=== PATIENT | male | born 1945 | race Caucasian/White ===

== ENCOUNTER 2020-04-17 22:04 | Inpatient (IN) ==
[2020-04-17] MEDS ORDERED: 0.9 % Sodium Chloride 1,000 ML IVC ONE (22:23)
[2020-04-17] MEDS ORDERED: Ondansetron 4 MG/2 ML VIAL IVP ONE (22:48)
[2020-04-17 23:17] LABS: Bilirubin,Urine Negative (Negative); Blood,Urine Negative (Negative); Clarity,Urine Clear (Clear); Color,Urine Yellow (Yellow); Glucose,Urine (UA) Normal (Normal); Ketones,Urine Negative (Negative); Leukocyte Esterase,Urine Negative (Negative); Nitrite,Urine Negative (Negative); PH,Urine 5.5 pH Units (5.0-8.0); Protein,Urine 30 mg/dL (Neg-Trace); Specific Gravity,Urine 1.025 (1.010-1.025); Urobilinogen,Urine Normal (Normal)
[2020-04-17 23:20] LABS: Mucus,Urine Few per lpf (None-Few); RBC,Urine 0-3 per hpf (0-3); Squamous Epithelial Cell,Urine Few per hpf (None-Few); WBC,Urine 0-3 per hpf (0-3)
[2020-04-17] MEDS ORDERED: Piperacillin/Tazobactam 3.375 GM in Water for inj. (sterile) 20 ML IVP ONE (23:36)
[2020-04-17 23:37] LABS: Hematocrit 44.8 % (37.5-50.1); Hemoglobin 14.6 g/dL (12.9-16.9); Lymphocytes # 0.4 K/mcL (0.6-4.6); Mean Corpuscular HGB Conc 32.6 g/dL (31.6-35.5); Mean Corpuscular Hemoglobin 29.8 pg (28.0-33.3); Mean Corpuscular Volume 91.4 fL (83.0-100.0); Mean Platelet Volume 10.2 fL (9.4-12.4); Platelet Count 210 K/mcL (140-400); Red Cell Distribution Width 14.5 % (11.5-14.5)
[2020-04-17 23:40] LABS: White Blood Count 9.7 K/mcL (4.3-11.1)
[2020-04-17 23:46] LABS: VBG HCO3 22 mEq/L (21-27); VBG PCO2 36 mmHg (41-51); VBG PH 7.39 pH Units (7.32-7.42); VBG PO2 76 mmHg (25-50)
[2020-04-18 00:06] LABS: Albumin 4.1 g/dL (3.5-5.7); Albumin/Globulin Ratio 1.6 (1.1-2.2); Bilirubin,Direct 0.2 mg/dL (0.0-0.2); Bilirubin,Indirect 0.6 mg/dL (0.0-1.0); Bilirubin,Total 0.8 mg/dL (0.3-1.0); Calcium 8.4 mg/dL (8.6-10.3); Globulin 2.5 g/dL (2.4-3.5); Magnesium 1.6 mg/dL (1.6-2.6); Potassium 3.5 mEq/L (3.5-5.1); Total Protein 6.6 g/dL (6.4-8.9)
[2020-04-18 00:11] LABS: Eosinophils # 0.2 K/mcL (0.0-0.6); Monocytes # 0.2 K/mcL (0.0-1.3); Neutrophils # 8.7 K/mcL (1.6-8.9)
[2020-04-18 00:12] LABS: Large Platelets Present (Not Present); Platelet Estimate Normal (Normal); Reactive Lymphocytes Present (Not Present)
[2020-04-18 00:23] LABS: Adenovirus Not Detected (Not Detect); Bordetella Pertussis Not Detected (Not Detect); Chlamydophila pneumoniae Not Detected (Not Detect); Coronavirus 229E Not Detected (Not Detect); Coronavirus HKU1 Not Detected (Not Detect); Coronavirus NL63 Not Detected (Not Detect); Coronavirus OC43 Not Detected (Not Detect); Human Metapneumovirus Not Detected (Not Detect); Human Rhinovirus/Enterovirus Not Detected (Not Detect); Influenza A Subtype 2009 H1 Not Detected (Not Detect); Influenza B Not Detected (Not Detect); Mycoplasma pneumoniae Not Detected (Not Detect); Parainfluenza Virus 1 Not Detected (Not Detect); Parainfluenza Virus 2 Not Detected (Not Detect); Parainfluenza Virus 3 Not Detected (Not Detect); Parainfluenza Virus 4 Not Detected (Not Detect); Respiratory Syncytial Virus Not Detected (Not Detect); SARS-CoV-2 Not Detected (Not Detect)
[2020-04-18 00:28] LABS: INR 3.7; Prothrombin Time 41.9 Seconds (9.4-12.1)
[2020-04-18] MEDS ORDERED: Naloxone 0.4 MG/ML INJ IVP PRN (04:06)
[2020-04-18] MEDS ORDERED: Ondansetron 4 MG/2 ML VIAL IVP PRN (04:12)
[2020-04-18] MEDS ORDERED: 0.9 % Sodium Chloride 1,000 ML IVC SCH (04:15)
[2020-04-18 04:37] LABS: Hematocrit 41.3 % (37.5-50.1); Hemoglobin 13.5 g/dL (12.9-16.9); Mean Corpuscular HGB Conc 32.7 g/dL (31.6-35.5); Mean Corpuscular Hemoglobin 30.3 pg (28.0-33.3); Mean Corpuscular Volume 92.8 fL (83.0-100.0); Mean Platelet Volume 10.1 fL (9.4-12.4); Platelet Count 185 K/mcL (140-400); Red Blood Count 4.45 M/mcL (4.19-5.50); Red Cell Distribution Width 14.6 % (11.5-14.5); White Blood Count 12.1 K/mcL (4.3-11.1)
[2020-04-18 04:57] LABS: Albumin 3.7 g/dL (3.5-5.7); Albumin/Globulin Ratio 1.4 (1.1-2.2); Bilirubin,Total 0.8 mg/dL (0.3-1.0); Calcium 7.8 mg/dL (8.6-10.3); Globulin 2.6 g/dL (2.4-3.5); Potassium 3.8 mEq/L (3.5-5.1); Total Protein 6.3 g/dL (6.4-8.9)
[2020-04-18 05:11] LABS: Large Platelets Present (Not Present); Lymphocytes # 0.7 K/mcL (0.6-4.6); Monocytes # 0.5 K/mcL (0.0-1.3); Neutrophils # 10.9 K/mcL (1.6-8.9); Platelet Estimate Normal (Normal)
[2020-04-18] MEDS ORDERED: *HR* Heparin 5,000 UNIT/ML VIAL IVP PRN ×2 (05:55)
[2020-04-18] MEDS ORDERED: D5% in Water 1,000 ML IVC PRN (05:56)
[2020-04-18] MEDS ORDERED: *HR* Dextrose 50 % in Water (Vial) 50 ML VIAL IVP PRN (05:56)
[2020-04-18] MEDS ORDERED: Dextrose Gel 15 GM/37.5 ML TUBE PO PRN ×2 (05:56)
[2020-04-18] MEDS: Azithromycin 500 MG in 0.9 % Sodium Chloride 250 ML IVPB SCH (06:04)
[2020-04-18] MEDS: Insulin LISPRO 300 UNITS/3 ML VIAL SQ SCH ×4 (06:36→23:23)
[2020-04-18] MEDS: Heparin 25,000UNIT/250ML 1/2NS 25,000 UNIT/250 ML IV.SOLN IVC SCH ×2 (07:05→23:13)
[2020-04-18] MEDS: cefTRIAXone 1,000 MG in 0.9 % Sodium Chloride Mini Bag 100 ML IVPB SCH (09:09)
[2020-04-19 04:46] LABS: Basophils # 0.1 K/mcL (0.0-0.2); Eosinophils # 0.2 K/mcL (0.0-0.6); Eosinophils % 1.6 %; Hematocrit 40.9 % (37.5-50.1); Hemoglobin 12.9 g/dL (12.9-16.9); Immature Granulocytes % 2.9 % (0-4); Lymphocytes # 1.1 K/mcL (0.6-4.6); Lymphocytes % 9.7 %; Mean Corpuscular HGB Conc 31.5 g/dL (31.6-35.5); Mean Corpuscular Hemoglobin 29.7 pg (28.0-33.3); Mean Corpuscular Volume 94.2 fL (83.0-100.0); Mean Platelet Volume 10.6 fL (9.4-12.4); Monocytes % 9.2 %; Neutrophils # 8.5 K/mcL (1.6-8.9); Platelet Count 192 K/mcL (140-400); Red Blood Count 4.34 M/mcL (4.19-5.50); Red Cell Distribution Width 14.4 % (11.5-14.5); Segmented Neutrophils % 75.6 %; White Blood Count 11.2 K/mcL (4.3-11.1)
[2020-04-19 05:05] LABS: BUN/Creatinine Ratio 17 (6-26); Blood Urea Nitrogen 19 mg/dL (8-23); Calcium 7.5 mg/dL (8.6-10.3); Carbon Dioxide 18 mEq/L (23-29); Chloride 110 mEq/L (98-107); Glucose 179 mg/dL (70-105); Osmolality,Calculated 297 (280-300); Potassium 3.4 mEq/L (3.5-5.1); Sodium 140 mEq/L (136-145); eGFR For African Americans > 60 (> 60); eGFR For Non-African Americans > 60 (> 60)
[2020-04-19] MEDS: Insulin LISPRO 300 UNITS/3 ML VIAL SQ SCH ×2 (06:06→12:35)
[2020-04-19] MEDS: Azithromycin 500 MG in 0.9 % Sodium Chloride 250 ML IVPB SCH (06:07)
[2020-04-19] MEDS ORDERED: Potassium Chloride 40 MEQ, Lidocaine 1% 2 ML in 0.9 % Sodium Chloride 500 ML IVPB ONE (07:23)
[2020-04-19] MEDS ORDERED: Sodium Bicarbonate 100 MEQ in 0.45 % Sodium Chloride 1,000 ML IVC SCH (07:30)
[2020-04-19] MEDS ORDERED: *HR* LORazepam 2 MG/ML VIAL IVP ONE (08:08)
[2020-04-19] MEDS: cefTRIAXone 1,000 MG in 0.9 % Sodium Chloride Mini Bag 100 ML IVPB SCH (08:25)
[2020-04-19] MEDS ORDERED: *HR* LORazepam 2 MG/ML VIAL IVP SCH (09:15)
[2020-04-19 10:02] LABS: INR 3.5; Prothrombin Time 39.6 Seconds (9.4-12.1)
[2020-04-19] MEDS ORDERED: Levothyroxine Sodium 100 MCG VIAL IVP SCH (10:15)
[2020-04-19] MEDS ORDERED: *HR* Metoprolol 5 MG/5 ML VIAL IVP PRN (10:16)
[2020-04-19] MEDS: Heparin 25,000UNIT/250ML 1/2NS 25,000 UNIT/250 ML IV.SOLN IVC SCH (17:21)
[2020-04-19] MEDS: ALPRAZolam 0.25 MG TABLET PO SCH (20:22)
[2020-04-19] MEDS: Pregabalin 25 MG CAPSULE PO SCH (20:23)
[2020-04-19] MEDS: *HR* LORazepam 2 MG/ML VIAL IVP SCH (20:23)
[2020-04-19] MEDS: Furosemide 40 MG TABLET PO SCH (20:23)
[2020-04-19] MEDS: atenoloL 25 MG TABLET PO SCH (20:23)
[2020-04-19] MEDS ORDERED: Insulin LISPRO 300 UNITS/3 ML VIAL SQ SCH (21:00)
[2020-04-20 01:47] LABS: Eosinophils # 0.2 K/mcL (0.0-0.6); Hematocrit 37.7 % (37.5-50.1); Hemoglobin 12.1 g/dL (12.9-16.9); Mean Corpuscular HGB Conc 32.1 g/dL (31.6-35.5); Mean Corpuscular Hemoglobin 29.7 pg (28.0-33.3); Mean Corpuscular Volume 92.6 fL (83.0-100.0); Mean Platelet Volume 10.1 fL (9.4-12.4); Platelet Count 193 K/mcL (140-400); Red Blood Count 4.07 M/mcL (4.19-5.50); Red Cell Distribution Width 14.6 % (11.5-14.5); White Blood Count 10.5 K/mcL (4.3-11.1)
[2020-04-20 02:10] LABS: BUN/Creatinine Ratio 17 (6-26); Blood Urea Nitrogen 16 mg/dL (8-23); Calcium 7.7 mg/dL (8.6-10.3); Carbon Dioxide 22 mEq/L (23-29); Chloride 110 mEq/L (98-107); Glucose 194 mg/dL (70-105); Osmolality,Calculated 298 (280-300); Potassium 3.6 mEq/L (3.5-5.1); Sodium 141 mEq/L (136-145); eGFR For African Americans > 60 (> 60); eGFR For Non-African Americans > 60 (> 60)
[2020-04-20 02:45] LABS: Lymphocytes # 1.9 K/mcL (0.6-4.6); Monocytes # 0.4 K/mcL (0.0-1.3)
[2020-04-20] MEDS ORDERED: Sodium Bicarbonate 100 MEQ in 0.45 % Sodium Chloride 1,000 ML IVC SCH (04:30)
[2020-04-20] MEDS: Azithromycin 500 MG in 0.9 % Sodium Chloride 250 ML IVPB SCH (06:26)
[2020-04-20] MEDS: cefTRIAXone 1,000 MG in 0.9 % Sodium Chloride Mini Bag 100 ML IVPB SCH (08:34)
[2020-04-20] MEDS: ALPRAZolam 0.25 MG TABLET PO SCH (08:35)
[2020-04-20] MEDS: *HR* LORazepam 2 MG/ML VIAL IVP SCH (08:36)
[2020-04-20] MEDS: Furosemide 40 MG TABLET PO SCH (08:36)
[2020-04-20] MEDS: atenoloL 25 MG TABLET PO SCH (08:36)
[2020-04-20] MEDS: Pregabalin 25 MG CAPSULE PO SCH (08:36)
[2020-04-20] MEDS: Insulin LISPRO 300 UNITS/3 ML VIAL SQ SCH ×2 (08:37→13:23)
[2020-04-20] MEDS ORDERED: Sennosides 8.6 MG TABLET PO SCH (09:00)
[2020-04-20] MEDS ORDERED: ARIPiprazole 10 MG TABLET PO SCH (09:00)
[2020-04-20] MEDS ORDERED: Fenofibrate 54 MG TABLET PO SCH (09:00)
[2020-04-20 10:36] VITALS: BP 117/63
[2020-04-20] MEDS: Heparin 25,000UNIT/250ML 1/2NS 25,000 UNIT/250 ML IV.SOLN IVC SCH (13:22)
== END 2020-04-20 13:25 | disposition home or self-care (01) | DRG 871 ==
LOC: EMEROOARM 22:04 → 3ANU 22:04 → SUATTDRO 04-18 01:09 → 3ANU 04-18 02:21
PROVIDERS: ADMIT Student in an Organized Health Care Education/Training Program; ATTEND Internal Medicine

== ENCOUNTER 2021-10-15 18:56 | Inpatient (IN) ==
[2021-10-15] MEDS ORDERED: Isovue-370 500 ML BOTTLE IVP ONE (19:50)
[2021-10-15 20:01] LABS: Bilirubin,Urine Negative (Negative); Blood,Urine Trace (Negative); Clarity,Urine Clear (Clear); Color,Urine Yellow (Yellow); Glucose,Urine (UA) Normal (Normal); Hyaline Casts,Urine Few per lpf (None Seen); Ketones,Urine Negative (Negative); Leukocyte Esterase,Urine Negative (Negative); Nitrite,Urine Negative (Negative); PH,Urine 5.5 pH Units (5.0-8.0); Protein,Urine 50 mg/dL (Neg-Trace); RBC,Urine 0-3 per hpf (0-3); Specific Gravity,Urine 1.025 (1.010-1.025); Urobilinogen,Urine Normal (Normal); WBC,Urine 0-3 per hpf (0-3)
[2021-10-15 20:02] LABS: Basophils % 0.4 %; Eosinophils % 0.4 %; Hematocrit 45.1 % (37.5-50.1); Hemoglobin 14.8 g/dL (12.9-16.9); Immature Granulocytes % 0.7 % (0-4); Lymphocytes # 0.8 K/mcL (0.6-4.6); Lymphocytes % 9.9 %; Mean Corpuscular HGB Conc 32.8 g/dL (31.6-35.5); Mean Corpuscular Hemoglobin 29.1 pg (28.0-33.3); Mean Corpuscular Volume 88.6 fL (83.0-100.0); Mean Platelet Volume 10.3 fL (9.4-12.4); Monocytes # 0.9 K/mcL (0.0-1.3); Monocytes % 11.2 %; Neutrophils # 6.4 K/mcL (1.6-8.9); Platelet Count 282 K/mcL (140-400); Red Blood Count 5.09 M/mcL (4.19-5.50); Red Cell Distribution Width 13.9 % (11.5-14.5); Segmented Neutrophils % 77.4 %; White Blood Count 8.3 K/mcL (4.3-11.1)
[2021-10-15 20:23] LABS: Alanine Aminotransferase 20 Units/L (7-52); Albumin 3.9 g/dL (3.5-5.7); Albumin/Globulin Ratio 1.2 (1.1-2.2); Alkaline Phosphatase 67 Units/L (34-104); Aspartate Amino Transferase 23 Units/L (13-39); BUN/Creatinine Ratio 21 (6-26); Bilirubin,Indirect 0.6 mg/dL (0.0-1.0); Bilirubin,Total 0.6 mg/dL (0.3-1.0); Blood Urea Nitrogen 28 mg/dL (8-23); Calcium 9.2 mg/dL (8.6-10.3); Carbon Dioxide 27 mEq/L (23-29); Chloride 101 mEq/L (98-107); Globulin 3.2 g/dL (2.4-3.5); Glucose 150 mg/dL (70-105); Lipase 38 Units/L (11-82); Osmolality,Calculated 292 (280-300); Potassium 4.2 mEq/L (3.5-5.1); Sodium 137 mEq/L (136-145); Total Protein 7.1 g/dL (6.4-8.9); eGFR For African Americans > 60 (> 60); eGFR For Non-African Americans 53 (> 60)
[2021-10-15] MEDS ORDERED: 0.9 % Sodium Chloride 250 ML IVC ONE (21:40)
[2021-10-15] MEDS ORDERED: *HR* LORazepam 2 MG/ML VIAL IVP ONE (22:55)
[2021-10-15] MEDS ORDERED: Ondansetron 4 MG/2 ML VIAL IVP ONE (22:55)
[2021-10-15 22:56] LABS: Adenovirus Not Detected (Not Detect); Bordetella Pertussis Not Detected (Not Detect); Chlamydophila pneumoniae Not Detected (Not Detect); Coronavirus 229E Not Detected (Not Detect); Coronavirus HKU1 Not Detected (Not Detect); Coronavirus NL63 Not Detected (Not Detect); Coronavirus OC43 Not Detected (Not Detect); Human Metapneumovirus Not Detected (Not Detect); Human Rhinovirus/Enterovirus Not Detected (Not Detect); Influenza A Subtype 2009 H1 Not Detected (Not Detect); Influenza B Not Detected (Not Detect); Mycoplasma pneumoniae Not Detected (Not Detect); Parainfluenza Virus 1 Not Detected (Not Detect); Parainfluenza Virus 2 Not Detected (Not Detect); Parainfluenza Virus 3 Not Detected (Not Detect); Parainfluenza Virus 4 Not Detected (Not Detect); Respiratory Syncytial Virus Not Detected (Not Detect); SARS-CoV-2 Not Detected (Not Detect)
[2021-10-15 23:13] LABS: INR 4.6
[2021-10-15] MEDS ORDERED: Tetracaine/Benzocaine/Butamben 1 SPRAY AEROSOL ONE (23:18)
[2021-10-15] MEDS ORDERED: *HR* Phytonadione 10 MG/ML AMPUL IVPB ONE (23:25)
[2021-10-15] MEDS ORDERED: Melatonin 3 MG TABLET PO PRN (23:31)
[2021-10-15] MEDS ORDERED: Naloxone 0.4 MG/ML INJ IVP PRN (23:31)
[2021-10-15] MEDS ORDERED: Dextrose 4 GM Chewable Tablets PO PRN ×2 (23:40)
[2021-10-15] MEDS ORDERED: D5% in Water 1,000 ML IVC PRN (23:40)
[2021-10-15] MEDS ORDERED: *HR* Dextrose 50 % in Water (Syg) 50 ML SYRINGE IVP PRN (23:40)
[2021-10-16] MEDS ORDERED: Ondansetron 4 MG/2 ML VIAL IVP PRN (00:02)
[2021-10-16] MEDS ORDERED: Tetracaine/Benzocaine/Butamben 1 SPRAY AEROSOL MM ONE (00:48)
[2021-10-16] MEDS: Insulin LISPRO 300 UNITS/3 ML VIAL SUBQ SCH ×4 (02:09→18:03)
[2021-10-16] MEDS: 0.9 % Sodium Chloride 1,000 ML IVC SCH ×2 (02:30→08:31)
[2021-10-16 06:04] LABS: Hematocrit 40.9 % (37.5-50.1); Hemoglobin 13.6 g/dL (12.9-16.9); Mean Corpuscular HGB Conc 33.3 g/dL (31.6-35.5); Mean Corpuscular Hemoglobin 29.6 pg (28.0-33.3); Mean Corpuscular Volume 89.1 fL (83.0-100.0); Mean Platelet Volume 10.4 fL (9.4-12.4); Platelet Count 246 K/mcL (140-400); Red Blood Count 4.59 M/mcL (4.19-5.50); Red Cell Distribution Width 13.9 % (11.5-14.5); White Blood Count 8.2 K/mcL (4.3-11.1)
[2021-10-16 06:11] LABS: Heparin anti-factor XA UFH < 0.04 IU/mL (0.30-0.70)
[2021-10-16 06:12] LABS: INR 2.6; Prothrombin Time 28.5 Seconds (9.4-12.1)
[2021-10-16] MEDS ORDERED: *HR* Heparin 5,000 UNIT/ML VIAL IVP ONE (06:23)
[2021-10-16] MEDS ORDERED: *HR* Heparin 5,000 UNIT/ML VIAL IVP PRN ×2 (06:23)
[2021-10-16 06:24] LABS: BUN/Creatinine Ratio 19 (6-26); Blood Urea Nitrogen 25 mg/dL (8-23); Calcium 8.5 mg/dL (8.6-10.3); Carbon Dioxide 29 mEq/L (23-29); Chloride 102 mEq/L (98-107); Glucose 105 mg/dL (70-105); Magnesium 2.1 mg/dL (1.6-2.6); Osmolality,Calculated 293 (280-300); Phosphorous 3.4 mg/dL (2.7-4.5); Potassium 3.5 mEq/L (3.5-5.1); Sodium 139 mEq/L (136-145); eGFR For African Americans > 60 (> 60); eGFR For Non-African Americans 52 (> 60)
[2021-10-16] MEDS: Heparin 25,000UNIT/250ML 1/2NS 25,000 UNIT/250 ML IV.SOLN IVC SCH (06:56)
[2021-10-16] MEDS ORDERED: *HR* LORazepam 0.5 MG TABLET PO PRN (13:53)
[2021-10-16 16:03] LABS: Adenovirus F 40/41 PCR Not detected (Not detect); Astrovirus PCR Not detected (Not detect); C.difficile Toxin A/B Gene PCR Not detected (Not detect); Campylobacter by PCR Not detected (Not detect); Cryptosporidium by PCR Not detected (Not detect); Cyclospora cayetanensis PCR Not detected (Not detect); E. coli O157 by PCR Not detected (Not detect); Entamoeba histolytica PCR Not detected (Not detect); Enteroaggregative E.coli(EAEC) Not detected (Not detect); Enteropathogenic E.coli(EPEC) Not detected (Not detect); Enterotoxigenic E.coli (ETEC) Not detected (Not detect); Giardia lamblia PCR Not detected (Not detect); Norovirus GI/GII PCR Not detected (Not detect); Plesiomonas shigelloides PCR Not detected (Not detect); Rotavirus A PCR Not detected (Not detect); Salmonella PCR Not detected (Not detect); Sapovirus PCR Not detected (Not detect); Shig/EnteroinvasiveE coli EIEC Not detected (Not detect); Shigalike tox-prod E coli STEC Not detected (Not detect); Vibrio PCR Not detected (Not detect); Vibrio cholerae PCR Not detected (Not detect); Yersinia enterocolitica PCR Not detected (Not detect)
[2021-10-16] MEDS: atenoloL 25 MG TABLET PO SCH (19:54)
[2021-10-16] MEDS: ALPRAZolam 0.25 MG TABLET PO SCH (19:55)
[2021-10-16] MEDS: Pregabalin 75 MG CAPSULE PO SCH (19:55)
[2021-10-17] MEDS: Insulin LISPRO 300 UNITS/3 ML VIAL SUBQ SCH ×4 (00:46→17:49)
[2021-10-17] MEDS: Heparin 25,000UNIT/250ML 1/2NS 25,000 UNIT/250 ML IV.SOLN IVC SCH (02:55)
[2021-10-17 03:14] LABS: Heparin anti-factor XA UFH 0.4 IU/mL (0.30-0.70); INR 1.4; Prothrombin Time 15.9 Seconds (9.4-12.1)
[2021-10-17 03:24] LABS: BUN/Creatinine Ratio 16 (6-26); Blood Urea Nitrogen 17 mg/dL (8-23); Calcium 7.8 mg/dL (8.6-10.3); Carbon Dioxide 24 mEq/L (23-29); Chloride 106 mEq/L (98-107); Glucose 125 mg/dL (70-105); Osmolality,Calculated 287 (280-300); Phosphorous 2.4 mg/dL (2.7-4.5); Potassium 3.4 mEq/L (3.5-5.1); Sodium 137 mEq/L (136-145); eGFR For African Americans > 60 (> 60); eGFR For Non-African Americans > 60 (> 60)
[2021-10-17] MEDS: NIFEdipine XL (24 HR) 30 MG TAB.ER.24 PO SCH (08:12)
[2021-10-17] MEDS: atenoloL 25 MG TABLET PO SCH ×2 (08:12→20:50)
[2021-10-17] MEDS: Pregabalin 75 MG CAPSULE PO SCH ×2 (08:12→20:50)
[2021-10-17] MEDS: ARIPiprazole 5 MG TABLET PO SCH (08:12)
[2021-10-17] MEDS ORDERED: Fenofibrate 54 MG TABLET PO SCH (13:00)
[2021-10-17] MEDS: Furosemide 40 MG TABLET PO SCH (13:10)
[2021-10-17] MEDS: *HR* Enoxaparin 100 MG/ML SYRINGE SQ SCH (17:49)
[2021-10-17] MEDS ORDERED: *HR* Warfarin 4 MG TABLET PO ONE (18:00)
[2021-10-17] MEDS ORDERED: Warfarin perPT PO PRN (18:00)
[2021-10-17] MEDS: ALPRAZolam 0.25 MG TABLET PO SCH (22:47)
[2021-10-18] MEDS: Insulin LISPRO 300 UNITS/3 ML VIAL SUBQ SCH ×3 (00:31→08:31)
[2021-10-18 01:04] LABS: INR 1.3; Prothrombin Time 14.1 Seconds (9.4-12.1)
[2021-10-18 01:15] LABS: BUN/Creatinine Ratio 13 (6-26); Blood Urea Nitrogen 14 mg/dL (8-23); Calcium 8.4 mg/dL (8.6-10.3); Carbon Dioxide 22 mEq/L (23-29); Chloride 107 mEq/L (98-107); Glucose 189 mg/dL (70-105); Magnesium 1.9 mg/dL (1.6-2.6); Osmolality,Calculated 288 (280-300); Phosphorous 2.7 mg/dL (2.7-4.5); Sodium 136 mEq/L (136-145); eGFR For African Americans > 60 (> 60); eGFR For Non-African Americans > 60 (> 60)
[2021-10-18] MEDS: *HR* Enoxaparin 100 MG/ML SYRINGE SQ SCH (05:02)
[2021-10-18] MEDS: Furosemide 40 MG TABLET PO SCH (05:02)
[2021-10-18 07:11] VITALS: BP 124/65; PULSE 59; TEMP 97.6; O2SAT 95
[2021-10-18] MEDS ORDERED: ALPRAZolam 0.25 MG TABLET PO ONE (08:26)
[2021-10-18] MEDS: ARIPiprazole 5 MG TABLET PO SCH (08:27)
[2021-10-18] MEDS: NIFEdipine XL (24 HR) 30 MG TAB.ER.24 PO SCH (08:27)
[2021-10-18] MEDS: atenoloL 25 MG TABLET PO SCH (08:27)
[2021-10-18] MEDS: Pregabalin 75 MG CAPSULE PO SCH (08:28)
[2021-10-18] MEDS ORDERED: *HR* Warfarin 3 MG TABLET PO ONE (18:00)
== END 2021-10-18 11:18 | disposition home health service (06) | DRG 390 ==
LOC: 3BNU 18:56 → EMEROOARM 18:56 → OBSVTOIN 10-16 00:01 → SUATTDRO 10-16 00:01 → 3BNU 10-16 01:45
PROVIDERS: ADMIT Internal Medicine; ATTEND Internal Medicine

== ENCOUNTER 2022-01-14 09:17 | Inpatient (IN) ==
[2022-01-14] MEDS ORDERED: Iopamidol - 370 500 ML MLS IVP ONE (09:40)
[2022-01-14 09:58] LABS: Basophils % 0.3 %; Eosinophils # 0.1 K/mcL (0.0-0.6); Eosinophils % 0.4 %; Hematocrit 42.6 % (37.5-50.1); Hemoglobin 13.8 g/dL (12.9-16.9); Immature Granulocytes % 0.4 % (0-4); Lymphocytes # 0.5 K/mcL (0.6-4.6); Lymphocytes % 3.5 %; Mean Corpuscular HGB Conc 32.4 g/dL (31.6-35.5); Mean Corpuscular Hemoglobin 28.9 pg (28.0-33.3); Mean Corpuscular Volume 89.3 fL (83.0-100.0); Mean Platelet Volume 10.2 fL (9.4-12.4); Monocytes # 0.8 K/mcL (0.0-1.3); Monocytes % 5.1 %; Neutrophils # 14.1 K/mcL (1.6-8.9); Platelet Count 200 K/mcL (140-400); Red Blood Count 4.77 M/mcL (4.19-5.50); Red Cell Distribution Width 15.4 % (11.5-14.5); Segmented Neutrophils % 90.3 %; White Blood Count 15.6 K/mcL (4.3-11.1)
[2022-01-14 10:08] LABS: Activated Partial Thrombo Time 60.9 Seconds (26.0-36.0)
[2022-01-14 10:11] LABS: INR 5.4
[2022-01-14 10:12] LABS: Alanine Aminotransferase 22 Units/L (7-52); Albumin/Globulin Ratio 1.4 (1.1-2.2); Alkaline Phosphatase 59 Units/L (34-104); Aspartate Amino Transferase 22 Units/L (13-39); BUN/Creatinine Ratio 15 (6-26); Bilirubin,Total 0.7 mg/dL (0.3-1.0); Blood Urea Nitrogen 21 mg/dL (8-23); Calcium 8.9 mg/dL (8.6-10.3); Carbon Dioxide 26 mEq/L (23-29); Chloride 105 mEq/L (98-107); Globulin 2.8 g/dL (2.4-3.5); Glucose 129 mg/dL (70-105); Osmolality,Calculated 295 (280-300); Potassium 3.7 mEq/L (3.5-5.1); Sodium 140 mEq/L (136-145); Total Protein 6.8 g/dL (6.4-8.9); Troponin I < 0.03 ng/mL (< 0.04); eGFR For African Americans > 60 (> 60); eGFR For Non-African Americans 50 (> 60)
[2022-01-14 10:32] LABS: Influenza A PCR Negative (Negative); Influenza B PCR Negative (Negative); Resp. Syncytial Virus PCR Negative (Negative); SARS-CoV-2 by PCR (In House) Negative (Negative)
[2022-01-14] MEDS ORDERED: cefTRIAXone 1,000 MG in 0.9 % Sodium Chloride 10 ML IVP ONE (11:26)
[2022-01-14] MEDS ORDERED: Azithromycin 500 MG in 0.9 % Sodium Chloride 250 ML IVPB ONE (11:26)
[2022-01-14] MEDS ORDERED: D5% in Water 1,000 ML IVC PRN (13:48)
[2022-01-14] MEDS ORDERED: Acetaminophen 325 MG TABLET PO PRN (13:48)
[2022-01-14] MEDS ORDERED: *HR* Dextrose 50 % in Water (Syg) 50 ML SYRINGE IVP PRN (13:48)
[2022-01-14] MEDS ORDERED: Ondansetron 4 MG/2 ML VIAL IVP PRN (13:48)
[2022-01-14] MEDS ORDERED: Dextrose Gel 15 GM/37.5 ML TUBE PO PRN ×2 (13:48)
[2022-01-14] MEDS ORDERED: Naloxone 0.4 MG/ML INJ IVP PRN (13:48)
[2022-01-14] MEDS ORDERED: Perflutren Lipid Microsphere 1.3 ML in 0.9 % Sodium Chloride 8.7 ML IVP PRN (13:51)
[2022-01-14] MEDS ORDERED: Furosemide 40 MG/4 ML VIAL IVP SCH (14:00)
[2022-01-14] MEDS ORDERED: Ipratropium/Albuterol Neb 3 ML IH PRN (14:19)
[2022-01-14] MEDS: Insulin LISPRO 300 UNITS/3 ML VIAL SUBQ SCH (16:18)
[2022-01-14] MEDS ORDERED: Doxycycline 100 MG in 0.9 % Sodium Chloride Mini Bag 100 ML IVPB SCH (18:00)
[2022-01-14] MEDS: Doxycycline 100 MG in 0.9 % Sodium Chloride Mini Bag 100 ML IVPB SCH (22:43)
[2022-01-14] MEDS: ALPRAZolam 0.25 MG TABLET PO SCH (22:44)
[2022-01-14] MEDS: Pregabalin 75 MG CAPSULE PO SCH (22:44)
[2022-01-14] MEDS: atenoloL 25 MG TABLET PO SCH (22:44)
[2022-01-15 02:19] LABS: Basophils % 0.3 %; Eosinophils # 0.2 K/mcL (0.0-0.6); Eosinophils % 1.2 %; Hematocrit 38.1 % (37.5-50.1); Hemoglobin 12.5 g/dL (12.9-16.9); Immature Granulocytes % 0.6 % (0-4); Lymphocytes # 0.9 K/mcL (0.6-4.6); Lymphocytes % 6.3 %; Mean Corpuscular HGB Conc 32.8 g/dL (31.6-35.5); Mean Corpuscular Hemoglobin 28.9 pg (28.0-33.3); Mean Platelet Volume 10.7 fL (9.4-12.4); Monocytes # 0.8 K/mcL (0.0-1.3); Monocytes % 5.6 %; Neutrophils # 12.4 K/mcL (1.6-8.9); Platelet Count 217 K/mcL (140-400); Red Blood Count 4.33 M/mcL (4.19-5.50); Red Cell Distribution Width 15.6 % (11.5-14.5); White Blood Count 14.4 K/mcL (4.3-11.1)
[2022-01-15 02:29] LABS: Calcium 8.6 mg/dL (8.6-10.3); Magnesium 1.9 mg/dL (1.6-2.6); Phosphorous 2.2 mg/dL (2.7-4.5); Potassium 3.4 mEq/L (3.5-5.1)
[2022-01-15] MEDS: ARIPiprazole 5 MG TABLET PO SCH (07:57)
[2022-01-15] MEDS: NIFEdipine XL (24 HR) 30 MG TAB.ER.24 PO SCH (07:57)
[2022-01-15] MEDS: atenoloL 25 MG TABLET PO SCH ×2 (07:57→21:03)
[2022-01-15] MEDS: Pregabalin 75 MG CAPSULE PO SCH ×2 (07:57→21:03)
[2022-01-15] MEDS: cefTRIAXone 1,000 MG in 0.9 % Sodium Chloride 10 ML IVP SCH (07:58)
[2022-01-15] MEDS: Insulin LISPRO 300 UNITS/3 ML VIAL SUBQ SCH ×3 (08:00→16:40)
[2022-01-15 08:32] LABS: INR 2.5; Prothrombin Time 27.9 Seconds (9.4-12.1)
[2022-01-15] MEDS: Doxycycline 100 MG in 0.9 % Sodium Chloride Mini Bag 100 ML IVPB SCH ×2 (13:31→23:48)
[2022-01-15] MEDS: Fenofibrate 54 MG TABLET PO SCH (13:31)
[2022-01-15] MEDS: MetroNIDAZOLE 500 MG/100 ML 500 MG/100 ML BAG IVPB SCH (16:40)
[2022-01-15] MEDS ORDERED: *HR* Warfarin 3 MG TABLET PO ONE (18:00)
[2022-01-15] MEDS ORDERED: Warfarin perPT PO PRN (18:00)
[2022-01-15] MEDS: ALPRAZolam 0.25 MG TABLET PO SCH (21:04)
[2022-01-16] MEDS: MetroNIDAZOLE 500 MG/100 ML 500 MG/100 ML BAG IVPB SCH ×3 (00:46→17:30)
[2022-01-16 06:08] LABS: Basophils # 0.1 K/mcL (0.0-0.2); Basophils % 0.7 %; Eosinophils # 0.2 K/mcL (0.0-0.6); Eosinophils % 2.1 %; Hematocrit 40.4 % (37.5-50.1); Immature Granulocytes % 0.8 % (0-4); Lymphocytes # 0.9 K/mcL (0.6-4.6); Lymphocytes % 9.3 %; Mean Corpuscular HGB Conc 32.2 g/dL (31.6-35.5); Mean Corpuscular Hemoglobin 28.5 pg (28.0-33.3); Mean Corpuscular Volume 88.6 fL (83.0-100.0); Monocytes # 0.7 K/mcL (0.0-1.3); Monocytes % 6.8 %; Platelet Count 216 K/mcL (140-400); Red Blood Count 4.56 M/mcL (4.19-5.50); Red Cell Distribution Width 15.5 % (11.5-14.5); Segmented Neutrophils % 80.3 %
[2022-01-16 06:24] LABS: INR 1.7; Prothrombin Time 18.6 Seconds (9.4-12.1)
[2022-01-16 06:33] LABS: BUN/Creatinine Ratio 20 (6-26); Blood Urea Nitrogen 25 mg/dL (8-23); Calcium 9.1 mg/dL (8.6-10.3); Carbon Dioxide 22 mEq/L (23-29); Chloride 106 mEq/L (98-107); Glucose 276 mg/dL (70-105); Magnesium 2.1 mg/dL (1.6-2.6); Osmolality,Calculated 294 (280-300); Phosphorous 2.1 mg/dL (2.7-4.5); Potassium 4.3 mEq/L (3.5-5.1); Sodium 135 mEq/L (136-145); eGFR For African Americans > 60 (> 60); eGFR For Non-African Americans 55 (> 60)
[2022-01-16] MEDS ORDERED: *HR* Heparin 5,000 UNIT/ML VIAL IVP PRN ×2 (08:12)
[2022-01-16 08:43] LABS: Hematocrit 40.3 % (37.5-50.1); Hemoglobin 13.2 g/dL (12.9-16.9); Mean Corpuscular HGB Conc 32.8 g/dL (31.6-35.5); Mean Corpuscular Hemoglobin 28.9 pg (28.0-33.3); Mean Corpuscular Volume 88.4 fL (83.0-100.0); Mean Platelet Volume 10.4 fL (9.4-12.4); Platelet Count 213 K/mcL (140-400); Red Blood Count 4.56 M/mcL (4.19-5.50); Red Cell Distribution Width 15.5 % (11.5-14.5); White Blood Count 9.5 K/mcL (4.3-11.1)
[2022-01-16 08:55] LABS: Heparin anti-factor XA UFH 0.04 IU/mL (0.30-0.70); INR 1.7; Prothrombin Time 18.7 Seconds (9.4-12.1)
[2022-01-16] MEDS: atenoloL 25 MG TABLET PO SCH ×2 (09:34→20:47)
[2022-01-16] MEDS: Pregabalin 75 MG CAPSULE PO SCH ×2 (09:34→20:47)
[2022-01-16] MEDS: ARIPiprazole 5 MG TABLET PO SCH (09:34)
[2022-01-16] MEDS: NIFEdipine XL (24 HR) 30 MG TAB.ER.24 PO SCH (09:34)
[2022-01-16] MEDS: cefTRIAXone 1,000 MG in 0.9 % Sodium Chloride 10 ML IVP SCH (09:35)
[2022-01-16] MEDS: Insulin LISPRO 300 UNITS/3 ML VIAL SUBQ SCH ×3 (09:37→17:36)
[2022-01-16] MEDS: Heparin 25,000UNIT/250ML 1/2NS 25,000 UNIT/250 ML IV.SOLN IVC SCH (11:10)
[2022-01-16] MEDS: Doxycycline 100 MG in 0.9 % Sodium Chloride Mini Bag 100 ML IVPB SCH (13:27)
[2022-01-16] MEDS: Fenofibrate 54 MG TABLET PO SCH (13:28)
[2022-01-16] MEDS ORDERED: E-Z-PAQUE (BARIUM SULF) SUSP 1 BOTTLE PO ONE (17:29)
[2022-01-16] MEDS ORDERED: E-Z-HD (BARIUM SULF) SUSPENSION PO ONE (17:29)
[2022-01-16] MEDS ORDERED: *HR* Warfarin 3 MG TABLET PO ONE (18:00)
[2022-01-16] MEDS: ALPRAZolam 0.25 MG TABLET PO SCH (20:47)
[2022-01-16] MEDS: Furosemide 20 MG/2 ML VIAL IVP SCH (20:47)
[2022-01-17] MEDS: Doxycycline 100 MG in 0.9 % Sodium Chloride Mini Bag 100 ML IVPB SCH ×3 (00:23→22:21)
[2022-01-17] MEDS: Heparin 25,000UNIT/250ML 1/2NS 25,000 UNIT/250 ML IV.SOLN IVC SCH ×2 (01:34→23:20)
[2022-01-17] MEDS: MetroNIDAZOLE 500 MG/100 ML 500 MG/100 ML BAG IVPB SCH ×3 (01:36→17:02)
[2022-01-17 06:51] LABS: Basophils # 0.1 K/mcL (0.0-0.2); Basophils % 0.7 %; Eosinophils # 0.3 K/mcL (0.0-0.6); Eosinophils % 3.2 %; Hematocrit 40.6 % (37.5-50.1); Hemoglobin 13.2 g/dL (12.9-16.9); Immature Granulocytes % 0.8 % (0-4); Lymphocytes # 1.2 K/mcL (0.6-4.6); Lymphocytes % 14.6 %; Mean Corpuscular HGB Conc 32.5 g/dL (31.6-35.5); Mean Corpuscular Hemoglobin 29.2 pg (28.0-33.3); Mean Corpuscular Volume 89.8 fL (83.0-100.0); Mean Platelet Volume 10.6 fL (9.4-12.4); Monocytes # 0.6 K/mcL (0.0-1.3); Monocytes % 7.1 %; Neutrophils # 6.2 K/mcL (1.6-8.9); Platelet Count 230 K/mcL (140-400); Red Blood Count 4.52 M/mcL (4.19-5.50); Red Cell Distribution Width 15.3 % (11.5-14.5); Segmented Neutrophils % 73.6 %; White Blood Count 8.5 K/mcL (4.3-11.1)
[2022-01-17 06:58] LABS: INR 1.8; Prothrombin Time 20.3 Seconds (9.4-12.1)
[2022-01-17 07:23] LABS: BUN/Creatinine Ratio 18 (6-26); Blood Urea Nitrogen 22 mg/dL (8-23); Carbon Dioxide 20 mEq/L (23-29); Chloride 106 mEq/L (98-107); Glucose 245 mg/dL (70-105); Osmolality,Calculated 295 (280-300); Potassium 3.8 mEq/L (3.5-5.1); Sodium 137 mEq/L (136-145); eGFR For African Americans > 60 (> 60); eGFR For Non-African Americans 57 (> 60)
[2022-01-17] MEDS: atenoloL 25 MG TABLET PO SCH (07:54)
[2022-01-17] MEDS: ARIPiprazole 5 MG TABLET PO SCH (07:54)
[2022-01-17] MEDS: Pregabalin 75 MG CAPSULE PO SCH ×2 (07:55→22:20)
[2022-01-17] MEDS: Furosemide 20 MG/2 ML VIAL IVP SCH (07:55)
[2022-01-17] MEDS: cefTRIAXone 1,000 MG in 0.9 % Sodium Chloride 10 ML IVP SCH (07:55)
[2022-01-17] MEDS: Insulin LISPRO 300 UNITS/3 ML VIAL SUBQ SCH ×3 (07:57→17:03)
[2022-01-17] MEDS: NIFEdipine XL (24 HR) 30 MG TAB.ER.24 PO SCH (07:59)
[2022-01-17] MEDS: Fenofibrate 54 MG TABLET PO SCH (12:22)
[2022-01-17] MEDS: Furosemide 20 MG TABLET PO SCH (17:02)
[2022-01-17] MEDS ORDERED: *HR* Warfarin 3 MG TABLET PO ONE (18:00)
[2022-01-17] MEDS: ALPRAZolam 0.25 MG TABLET PO SCH (22:20)
[2022-01-18] MEDS: MetroNIDAZOLE 500 MG/100 ML 500 MG/100 ML BAG IVPB SCH ×2 (00:47→08:29)
[2022-01-18] MEDS: atenoloL 25 MG TABLET PO SCH ×2 (00:48→08:28)
[2022-01-18 06:24] LABS: INR 2.1; Prothrombin Time 23.8 Seconds (9.4-12.1)
[2022-01-18 07:15] LABS: BUN/Creatinine Ratio 20 (6-26); Blood Urea Nitrogen 23 mg/dL (8-23); Calcium 8.8 mg/dL (8.6-10.3); Carbon Dioxide 22 mEq/L (23-29); Chloride 107 mEq/L (98-107); Glucose 278 mg/dL (70-105); Osmolality,Calculated 298 (280-300); Potassium 3.6 mEq/L (3.5-5.1); Sodium 137 mEq/L (136-145); eGFR For African Americans > 60 (> 60); eGFR For Non-African Americans > 60 (> 60)
[2022-01-18 07:47] VITALS: BP 154/68; PULSE 75; TEMP 97.5; O2SAT 96
[2022-01-18] MEDS: NIFEdipine XL (24 HR) 30 MG TAB.ER.24 PO SCH (08:28)
[2022-01-18] MEDS: cefTRIAXone 1,000 MG in 0.9 % Sodium Chloride 10 ML IVP SCH (08:28)
[2022-01-18] MEDS: ARIPiprazole 5 MG TABLET PO SCH (08:28)
[2022-01-18] MEDS: Furosemide 20 MG TABLET PO SCH (08:28)
[2022-01-18] MEDS: Pregabalin 75 MG CAPSULE PO SCH (08:28)
[2022-01-18] MEDS: Insulin LISPRO 300 UNITS/3 ML VIAL SUBQ SCH (08:30)
[2022-01-18] MEDS ORDERED: *HR* Enoxaparin 100 MG/ML SYRINGE SQ SCH (09:00)
[2022-01-18] MEDS ORDERED: *HR* Warfarin 3 MG TABLET PO ONE (18:00)
== END 2022-01-18 11:28 | disposition home or self-care (01) | DRG 193 ==
LOC: EMEROOARM 09:17 → 3NENU 09:17 → SUATTDRO 13:24 → 3NENU 14:16
PROVIDERS: ADMIT Hospitalist; ATTEND Family Medicine